=== PATIENT | male | born 1955 | race Caucasian/White ===

== ENCOUNTER 2020-09-26 11:04 | Emergency (ER) | payer MEDICARE, SELFPAY ==
[2020-09-26 11:08] VITALS: BP 141/57; PULSE 74; RESP 16; TEMP 37.3; O2SAT 99
[2020-09-26 11:13] VITALS: BP 141/57; PULSE 74; RESP 16; TEMP 37.3; O2SAT 99
--- NOTE | 2020-09-26 11:43 | ED.SKABFB ---
HPI - Skin/Abscess/Foreign Bdy General Chief complaint: Skin/Abscess/Foreign Body Stated complaint: TICK BITE Time Seen by Provider: 09/26/20 11:36 Source: patient and RN notes reviewed Mode of arrival: ambulatory Limitations: no limitations History of Present Illness HPI narrative: Patient presents today complaining of tick bite to the right abdomen that occurred 2 days ago. He was in [facility] [place] and wanted to come in for possible prophylactic antibiotics for possible Lyme disease. States he was treated with doxycycline approximately 30 years ago after he was bit by a tick previously. Denies fever or any additional symptoms. States the area in his abdomen has gotten slightly bigger and slightly more red. MD complaint: insect bite/sting Related Data Home Medications Medication Instructions Recorded Confirmed lansoprazole [Prevacid] 15 mg PO DAILY 09/26/20 09/26/20 loratadine [Claritin] mg 09/26/20 Allergies Allergy/AdvReac Type Severity Reaction Status Date / Time clindamycin Allergy Unknown Diarrhea Verified 09/26/20 11:12 Review of Systems Review of Systems: Narrative: CONSTITUTIONAL: Denies body aches, fever, chills, or sweats. EYES: Denies visual changes, redness, or discharge. ENT: Denies rhinorrhea, congestion, sore throat, or otalgia. CARDIOVASCULAR: Denies chest pain, palpitations, or edema. RESPIRATORY: Denies cough or dyspnea. GASTROINTESTINAL: Denies abdominal pain, nausea, vomiting, or diarrhea. GENITOURINARY: Denies dysuria or hematuria. SKIN: Denies rash, itching. + Bite to right abdomen MUSCULOSKELETAL: Denies back pain, joint pain, or myalgia. NEUROLOGIC: Denies headache, numbness, tingling, or weakness. PSYCH: Denies depression or anxiety. [facility] Past Medical History Medical History Encounter for colorectal cancer screening Family History Family History Sibling Patient's brother is in good health Mother Family history of pancreatic cancer Father Family history of lymphoma Social History Social History Smoking status: Never smoker Alcohol intake: current Comments At time of signature, I have reviewed and agree with nursing past medical, surgical, social and family history unless otherwise noted. Please see nursing chart for further information. There is no relevant family history pertinent to the presenting complaint Exam Narrative: Exam Narrative: GENERAL: Well-appearing, well-nourished, and in no acute distress. HEAD: Normocephalic, atraumatic. EYES: EOMI. No redness or drainage. Conjunctivae normal. ENT: Mucous membranes pink and moist. NECK: Normal AROM. CHEST: No respiratory distress. EXTREMITIES: Normal range of motion. No edema. SKIN: Warm, dry, no rash. Capillary refill normal. Normal skin turgor. + 1 x 1.5 cm erythematous and mildly indurated insect bite to the right lower abdomen that is nontender to palpation. No fluctuance. Nontender. NEURO: No focal deficits. Alert and oriented x3. Gait steady. PSYCH: Normal affect. No signs of depression or anxiety. Course Vital Signs Vital signs: Vital Signs Temperature 99.2 F 09/26/20 11:08 Pulse Rate 74 09/26/20 11:08 Respiratory Rate 16 09/26/20 11:08 Blood Pressure 141/57 H 09/26/20 11:08 Pulse Oximetry 99 09/26/20 11:08 Temperature 99.2 F 09/26/20 11:13 Pulse Rate 74 09/26/20 11:13 Respiratory Rate 16 09/26/20 11:13 Blood Pressure 141/57 H 09/26/20 11:13 Pulse Oximetry 99 09/26/20 11:13 Reviewed. Pt has been instructed to follow up with his PCP regarding his elevated blood pressure today. MDM - Skin/Abscess/Foreign Bdy Differential Diagnosis Differential diagnosis: Likely abscess of skin or subcutaneous tissue, urticaria, cellulitis, insect bites, impetigo and co
== END 2020-09-26 11:58 | disposition home or self-care (01) ==
PROVIDERS: Emergency Provider Nurse Practitioner; PCP Family Medicine
DX: S30.861A Insect bite (nonvenomous) of abdominal wall, initial encounter (principal); W57.XXXA Bitten or stung by nonvenomous insect and other nonvenomous arthropods, initial encounter; K21.9 Gastro-esophageal reflux disease without esophagitis
CPT/HCPCS: 99213; G0463

== ENCOUNTER 2021-08-30 06:16 | Emergency (ER) | payer MEDICARE, OTHER, SELFPAY ==
--- NOTE | ~2021-08-30 | XR_ITS ---
EXAMINATION: XR chest 1V portable DATE: 08/30/2021 06:57 INDICATION: Chest pain. TECHNIQUE: A single frontal view of the chest was obtained. COMPARISON: Chest single view 01/05/2008 FINDINGS: The chest demonstrates clear lungs without pneumonia, pleural effusion, or pneumothorax. Th e heart size is normal. IMPRESSION: 1. No acute cardiopulmonary disease. Reviewed, dictated and finalized at location A.
[2021-08-30 06:28] VITALS: BP 137/62; PULSE 73; RESP 16; TEMP 36.2; O2SAT 98
--- NOTE | 2021-08-30 06:35 | ECG_ITS ---
Measurements Intervals [place] Rate: 73 P: 8 [place]: 162 QRS: 19 QRSD: 130 T: -1 QT: 392 QTc: 434 Interpretive Statements SINUS RHYTHM WITH OCCASIONAL SUPRAVENTRICULAR PREMATURE COMPLEXES RIGHT BUNDLE BRANCH BLOCK [120+ ms QRS DURATION, UPRIGHT V1, 40+ ms S IN I/aVL/V4/V5/V6] NO PREVIOUS ECG AVAILABLE FOR COMPARISON Electronically Signed On 08-30-2021 16:19:22 CDT by Kentrell Cruz M.D.
[2021-08-30 06:52] LABS: Basophils Percent Auto 0.6 % (0.2-1.2); Eosinophils Absolute Auto 0.2 K/mm3 (0-0.3); Eosinophils Percent Auto 3.2 % (0-4.4); Hemoglobin 14.2 g/dL (14.0-18.0); Immature Granulocyte Absolute 0.02 K/mm3 (0.00-0.031); Immature Granulocyte Percent A 0.4 % (0-0.5); Lymphocytes Absolute Auto 1.46 K/mm3 (0.9-3.2); Lymphocytes Percent Auto 27.7 % (18.3-44.2); Mean Corpuscular Hemoglobin 29.4 pg (26-34); Mean Platelet Volume 10.1 fl (7.4-10.4); Monocytes Absolute Auto 0.5 K/mm3 (0.1-0.6); Monocytes Percent Auto 8.5 % (2.6-8.5); Neutrophils Absolute Auto 3.2 K/mm3 (1.3-6.7); Neutrophils Percent Auto 59.6 % (45.5-73.1); Platelet Count Result 187 k/mm3 (150-375); Red Blood Count 4.83 M/mm3 (4.6-6.20); White Blood Count 5.3 K/mm3 (4.5-10.0)
[2021-08-30 07:01] LABS: Alanine Aminotransferase 21 U/L (4-50); Albumin Level 3.9 g/dL (3.5-5.1); Alkaline Phosphatase 33 U/L (38-126); Anion Gap 6 mmol/L (8-16); Aspartate Amino Transferase 28 U/L (17-59); Bilirubin,Total 0.6 mg/dL (0.2-1.3); Blood Urea Nitrogen 15 mg/dL (9-20); Calcium 8.5 mg/dL (8.4-10.2); Carbon Dioxide 27 mmol/L (22-30); Chloride 107 mmol/L (98-107); Estimated CRCL calculation 72 ml/min; Estimated Glomerular Filt Rate > 60; Glucose 102 mg/dL (65-110); Potassium 3.8 mmol/L (3.4-5.0); Sodium 140 mmol/L (137-145)
--- NOTE | 2021-08-30 07:03 | ED.ARRPALP ---
HPI - Arrhythmia/Palpitations General Chief Complaint: Arrhythmia/Palpitations Stated Complaint: palpitations Time Seen by Provider: 08/30/21 07:02 Source: patient Mode of arrival: ambulatory Limitations: no limitations History of Present Illness HPI narrative: The patient is a 66 yo male who presents to the ER for evaluation of palpitations. Patient states that he experienced palpitations intermittently throughout the day yesterday and then awakened this morning with palpitations. Patient denies current palpitations. Denies fever, chills, cough, chest pain. Patient reports general malaise since COVID infection in May, denies pleuritic pain or shortness of breath. Denies shortness of breath at rest or with exertion. Patient denies leg swelling or calf pain. States that they have vacation to [facility], have been very active, denies recent surgery or immobility. Denies history of recent surgery. Patient denies weight loss, focal pain. States that because the palpitations awakened him this morning he wanted to be evaluated in the ER. Patient states he was wearing a fitness watch which showed his heart rate to be no greater than 80s. Related Data Home Medications Medication Instructions Recorded Confirmed tamsulosin 0.4 mg capsule 0.4 mg PO DAILY 01/29/21 06/18/21 Allergies Allergy/AdvReac Type Severity Reaction Status Date / Time clindamycin Allergy Unknown Diarrhea Verified 08/30/21 06:39 pollen extracts Allergy Unknown Verified 08/30/21 06:39 Review of Systems Review of Systems: CONSTITUTIONAL: Denies fever, chills, or sweats. EYES: Denies visual changes, redness, or discharge. ENT: Denies rhinorrhea, congestion, sore throat, or otalgia. CARDIOVASCULAR: Denies chest pain, denies current palpitations, or edema. RESPIRATORY: Denies cough or dyspnea. GASTROINTESTINAL: Denies abdominal pain, nausea, vomiting, or diarrhea. GENITOURINARY: Denies dysuria or hematuria. SKIN: Denies rash or itching. MUSCULOSKELETAL: Denies back pain, joint pain, or myalgia. NEUROLOGIC: Denies headache, numbness, or weakness. [facility] Past Medical History Medical History Encounter for colorectal cancer screening Family History Family History Sibling Patient's brother is in good health Mother Family history of pancreatic cancer Father Family history of lymphoma Social History Social History Second hand tobacco smoke exposure: No Alcohol intake: current Substance use: never Substance use type: does not use Gender identity (if verbalized by the patient): Male Sexual Orientation (if Verbalized by the Patient): Straight or Heterosexual Exam Narrative: GENERAL: Awake, alert, conversant HEAD: Normocephalic, atraumatic. EYES: PERRLA and EOMI. ENT: Nares clear, no rhinorrhea or epistaxis. Mucous membranes moist. NECK: Supple. CHEST: No respiratory distress, breathing even and non labored HEART: Regular rate, sinus rhythm ABDOMEN:Non distended, non tender EXTREMITIES: Normal range of motion. No edema. SKIN: Warm, dry, no rash. NEURO:No focal deficits. Alert and oriented x3 Course Vital Signs Vital signs: Vital Signs Temperature 36.2 C L 08/30/21 06:28 Pulse Rate 73 08/30/21 06:28 Respiratory Rate 16 08/30/21 06:28 Blood Pressure 137/62 08/30/21 06:28 Pulse Oximetry 98 08/30/21 06:28 Temperature 36.2 C L 08/30/21 06:28 Pulse Rate 72 08/30/21 10:03 Respiratory Rate 17 08/30/21 10:03 Blood Pressure 132/72 08/30/21 10:03 Pulse Oximetry 98 08/30/21 06:28 MDM - Arrhythmia/Palpitations MDM Narrative Medical decision making narrative: Patient presented for evaluation of palpitations that are resolved at the time of assessment. Patient is normal sinus rhythm on the laboratory monitor, EKG consistent with normal sinus rhyth
[2021-08-30 07:13] LABS: Troponin I < 0.012 ng/mL (0.000-0.034)
[2021-08-30 08:00] VITALS: BP 137/80; PULSE 78; RESP 22
[2021-08-30 09:00] VITALS: BP 109/84; PULSE 64; RESP 17
[2021-08-30 10:03] VITALS: BP 132/72; PULSE 72; RESP 17
[2021-08-30 10:37] LABS: Troponin I < 0.012 ng/mL (0.000-0.034)
[2021-08-30 10:55] VITALS: BP 122/68; PULSE 65; RESP 16
--- NOTE | 2021-09-02 16:46 | WPDHOLTEREM ---
Holter/Event Monitor Holter/Event Monitor Date of procedure: 08/30/21 Holter/Event Procedure: 48 Hr Holter Monitor Indications: Palpitations Conclusion: 1. 48 hour holter monitor on 08/30/21. 2. Predominant rhythm is sinus rhythm. HR range 50-112 bpm; average HR 74 bpm. 3. There are 6,741 premature supraventricular complexes, 11 supraventricular couplets, 1 supraventricular triplet, 1,057 supraventricular trigeminy. One episode of atrial tachycardia at 136 bpm lasting 4 beats. 4. No premature ventricular complexes. No ventricular tachycardia. 5. No sinoatrial or atrioventricular blocks. No significant pauses greater than 2 seconds. 6. Patient reports symptoms of palpitations, queasy, shakiness which demonstrate sinus rhythm, HR range 69-154 bpm with some PAC's.
== END 2021-08-30 12:27 | disposition home or self-care (01) ==
PROVIDERS: Emergency Medicine; Emergency Provider Emergency Medicine; PCP Family Medicine
DX: R00.2 Palpitations (principal); Z86.16 Personal history of COVID-19; I49.1 Atrial premature depolarization; I45.10 Unspecified right bundle-branch block
CPT/HCPCS: 36415; 71045; 80053; 84443; 84484; 85025; 93005; 93225; 93226; 99284

== ENCOUNTER → 2021-12-02 15:39 | Outpatient (CLI) | payer MEDICARE, OTHER, SELFPAY ==
--- NOTE | ~2021-12-02 | XR_ITS ---
EXAMINATION: XR chest 2V 12/02/2021 15:56 INDICATION: Cough PROCEDURE: 2 view chest COMPARISON: 08/30/2021 FINDINGS: The lungs are clear. The cardiomediastinal silhouette is within normal limits. There are no pleural effusions. There is no pneumothorax suspected. 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 IMPRESSION: 1: NO ACUTE CARDIOPULMONARY DISEASE. Reviewed, dictated and finalized at location A.
== END ==
PROVIDERS: PCP Family Medicine; Visit Provider Nurse Practitioner Family
DX: R05.9 Cough, unspecified (principal)
CPT/HCPCS: 71046

== ENCOUNTER 2022-04-30 10:05 | Emergency (ER) | payer MEDICARE, OTHER, SELFPAY ==
--- NOTE | 2022-04-30 10:18 | ED.URI ---
HPI - URI/Sore Throat General Chief Complaint: Upper Respiratory Infection Stated Complaint: sinus inf Time Seen by Provider: 04/30/22 10:19 Source: patient Mode of arrival: ambulatory Limitations: no limitations History of Present Illness HPI Narrative: Mr. Basilio is a 66-year-old male patient presenting to the clinic today with complaints of a possible sinus infection. He reports he has had nasal congestion and sinus pressure times 10 days. He reports that he has had maybe a mild fever. Has been blowing green nasal drainage. MD elicited complaint: sore throat and nasal congestion Related Data Home Medications Medication Instructions Recorded Confirmed tamsulosin 0.4 mg capsule mg PO 04/30/22 Allergies Allergy/AdvReac Type Severity Reaction Status Date / Time clindamycin Allergy Unknown Diarrhea Verified 04/30/22 10:17 pollen extracts Allergy Unknown Verified 04/30/22 10:17 Review of Systems Review of Systems: Pertinent positives per HPI. Patient denies any fever, chills, rash, headache, visual changes, dizziness, shortness of breath, chest pain, palpitations, nausea, vomiting, diarrhea, constipation, abdominal pain, or any urinary issues. PMFSH Past Medical History Medical History Encounter for colorectal cancer screening Supraventricular premature beats Family History Family History Sibling Patient's brother is in good health Mother Family history of pancreatic cancer Father Family history of lymphoma Social History Social History Smoking status: Never smoker Second hand tobacco smoke exposure: No Alcohol intake: current Substance use: never Substance use type: does not use Gender identity (if verbalized by the patient): Male Sexual Orientation (if Verbalized by the Patient): Straight or Heterosexual Comments At the time of my signature, I reviewed and agree with the nursing past medical, surgical, social, and family history. There is no relevant family history pertinent to the patient complaint. Exam Narrative: General: Well-developed, well nourished, in no apparent distress Head: Normocephalic, atraumatic Eyes: Pupils equally round and reactive to light bilaterally, EOM intact, sclera and conjunctive clear, no discharge, lids normal Ears: TMs intact and clear, ear canals clear, no drainage, grossly hearing normal. Nose: Nares patent, green nasal discharge, moderate to severe inflammation, maxillary sinus tenderness. Mouth: Oral pharynx without lesions or masses, good dentition, MMM. Neck: Supple, trachea midline, no enlargement of anterior or posterior cervical nodes, no thyroid masses or goiter palpable. Cardio: Regular rate and rhythm, s1 and s2 normal, no murmur appreciated. Resp: Clear to auscultation bilaterally, no rhonchi, rales, wheezing or rubs Course Course Emergency Course: Portions of this record may have been created with voice recognition software. Level of Care: Express Care Visit Vital Signs Vital signs: Vital Signs Temperature 37.1 C 04/30/22 10:22 Pulse Rate 81 04/30/22 10:22 Respiratory Rate 16 04/30/22 10:22 Blood Pressure 126/68 04/30/22 10:22 Pulse Oximetry 98 04/30/22 10:22 Temperature 37.1 C 04/30/22 10:22 Pulse Rate 81 04/30/22 10:22 Respiratory Rate 16 04/30/22 10:22 Blood Pressure 126/68 04/30/22 10:22 Pulse Oximetry 98 04/30/22 10:22 Vital signs reviewed MDM - URI/Sore Throat MDM Narrative Medical decision making narrative: At the time of visit patient is resting comfortably on the exam table. I suspect patient has acute bacterial rhinosinusitis. Will send a prescription for Augmentin and prednisone. Supportive measures were discussed with the patient he voiced understanding discharge instructions and agree
[2022-04-30 10:22] VITALS: BP 126/68; PULSE 81; RESP 16; TEMP 37.1; O2SAT 98
== END 2022-04-30 10:29 | disposition home or self-care (01) ==
PROVIDERS: Emergency Provider Nurse Practitioner Family; PCP Family Medicine
DX: J01.90 Acute sinusitis, unspecified (principal); B96.89 Other specified bacterial agents as the cause of diseases classified elsewhere
CPT/HCPCS: 99213; G0463

== ENCOUNTER 2023-05-08 14:38 | Emergency (ER) | payer MEDICARE, OTHER, SELFPAY ==
[2023-05-08 15:06] VITALS: BP 115/53; PULSE 71; RESP 16; TEMP 36.6; O2SAT 99
[2023-05-08 15:09] VITALS: BP 115/53; PULSE 71; RESP 16; TEMP 36.6; O2SAT 99
--- NOTE | 2023-05-08 15:09 | ED.URI ---
HPI - URI/Sore Throat General Chief Complaint: Upper Respiratory Infection Stated Complaint: steve,cough,fever Time Seen by Provider: 05/08/23 15:32 Source: patient and RN notes reviewed Mode of arrival: ambulatory Limitations: no limitations History of Present Illness HPI Narrative: 67-year-old male presents with concern for 3 day history of nasal congestion, rhinorrhea, cough, chest congestion. Reports he has taken ibuprofen, Sudafed with little relief. Reports exposure RSV. MD elicited complaint: fever and cough Related Data Home Medications Medication Instructions Recorded Confirmed tamsulosin 0.4 mg capsule 0.4 mg PO DAILY 04/30/22 05/08/23 loratadine 10 mg tablet (Claritin) 10 mg PO DAILY 05/08/23 05/08/23 multivit,Ca,min-iron 8 mg-folic 1 tablet PO DAILY 05/08/23 05/08/23 acid 200 mcg-lycopene 600 mcg tablet (Centrum Men) vit C 250 mg-vit E 200 unit-zinc 1 cap PO DAILY 05/08/23 05/08/23 ox 12.5 [id number] capsule (ICaps AREDS2) Allergies Allergy/AdvReac Type Severity Reaction Status Date / Time clindamycin Allergy Unknown Diarrhea Verified 05/08/23 15:06 pollen extracts Allergy Unknown Verified 05/08/23 15:06 Review of Systems Review of Systems: CONSTITUTIONAL: Reports malaise, fever. EYES: Denies visual changes, redness, or discharge. ENT: Reports rhinorrhea, congestion CARDIOVASCULAR: Denies chest pain, palpitations, or edema. RESPIRATORY: Reports cough. Denies dyspnea. GASTROINTESTINAL: Denies abdominal pain, nausea, vomiting, diarrhea SKIN: Denies rash or itching. MUSCULOSKELETAL: Denies myalgia. NEUROLOGIC: Denies headache. All systems reviewed & are unremarkable except as noted in HPI and below PMFSH Past Medical History Medical History Encounter for colorectal cancer screening Supraventricular premature beats Family History Family History Sibling Patient's brother is in good health Mother Family history of pancreatic cancer Father Family history of lymphoma Social History Social History Smoking status: Never smoker Second hand tobacco smoke exposure: No Alcohol intake: current Substance use: never Substance use type: does not use Living arrangements: with family Occupation/Education: occupation Gender identity (if verbalized by the patient): Male Sexual Orientation (if Verbalized by the Patient): Straight or Heterosexual Comments At time of signature, agree with nursing past medical, surgical, social and family history. There is no relevant family history pertinent to the presenting complaint Exam Narrative: GENERAL: Well-appearing, well-nourished, and in no acute distress. HEAD: Normocephalic EYES: PERRLA, conjunctivae clear ENT: Nares clear, turbinates edematous and erythematous, clear discharge. Mucous membranes moist. TM pearly turk with dull light reflex bilaterally; no tragal tenderness. Oropharynx not erythematous without lesions. Tonsils not enlarged and without exudate, no drooling, no hoarseness, no trismus, uvula midline. NECK: Supple. No lymphadenopathy CHEST: Clear to auscultation, breath sounds equal. No wheezing, rhonchi, rales, or stridor. No respiratory distress, speaks in full sentences. HEART: Regular rate and rhythm. No murmur heard. SKIN: Warm, dry, no rash. NEURO: Alert and oriented x3. PSYCH: Normal mood and affect Course Course Emergency Course: Patient is aware of diagnosis, understands and agrees to treatment plan. Anticipatory guidance given. Patient agrees to follow-up as directed and is aware of reasons to seek care at the emergency department. Portions of this record may have been created with voice recognition software Level of Care: Express Care Visit Vital Signs Vital signs: Vital Signs Temperature 98 F 05/08/23 15:06 Pulse
== END 2023-05-08 15:47 | disposition home or self-care (01) ==
PROVIDERS: Emergency Provider Nurse Practitioner; PCP Family Medicine
DX: J10.1 Influenza due to other identified influenza virus with other respiratory manifestations (principal)
CPT/HCPCS: 87420; 87804; 99213; G0463

== ENCOUNTER → 2023-06-01 09:45 | Outpatient (CLI) | payer MEDICARE, OTHER, SELFPAY ==
--- NOTE | ~2023-06-01 | CT_ITS ---
EXAMINATION: CT sinus wo con DATE: 06/01/2023 10:02 INDICATION: Acute recurrent pansinusitis TECHNIQUE: Computed tomography (CT) of the paranasal sinuses was performed without intravenous contra st. The dose-length product was 275.58 mGy-cm. Automated exposure control and iterative reconstructio n technique were employed. COMPARISON: CT dated 08/05/2008 FINDINGS: No air-fluid levels. Leftward nasal septal deviation. Ostiomeatal units are patent. There i s minimal mucosal thickening of the left maxillary antrum. No mucoperiosteal reaction. Mastoids are p neumatized. IMPRESSION: 1. Mild left maxillary sinus disease. Reviewed, dictated and finalized at location L. ETING DAT[employer]ASE COORDINATOR
== END ==
PROVIDERS: PCP Family Medicine; Visit Provider Otolaryngology
DX: J01.41 Acute recurrent pansinusitis (principal)
CPT/HCPCS: 70486

== ENCOUNTER → 2023-06-21 10:57 | Outpatient (CLI) | payer MEDICARE, OTHER, SELFPAY ==
--- NOTE | ~2023-06-21 | XR_ITS ---
Clinical Indication: Cough PA and lateral views of the chest: Comparison: 12/02/2021 Findings: The lungs are clear, without evidence of focal consolidation or pleural effusion. Cardiome diastinal silhouette is within normal limits. Bones and soft tissues are unremarkable. Impression: Normal chest. Reviewed, dictated and finalized at [facility]. DIPPER Impression: Normal chest.
== END ==
PROVIDERS: PCP Physician Assistant Medical; Visit Provider Physician Assistant Medical
DX: R05.9 Cough, unspecified (principal)
CPT/HCPCS: 71046

== ENCOUNTER 2023-07-28 08:26 | Emergency (ER) | payer MEDICARE, OTHER, SELFPAY ==
[2023-07-28 08:42] VITALS: BP 128/75; PULSE 85; RESP 16; TEMP 37; O2SAT 99
--- NOTE | 2023-07-28 08:44 | ED.EAR ---
HPI - Ear Problem General Chief complaint: Ear Stated complaint: Ear Pain Time Seen by Provider: 07/28/23 08:46 Source: patient and RN notes reviewed Mode of arrival: ambulatory Limitations: no limitations History of Present Illness HPI Narrative: 68-year-old male presents with concern for fullness in his left ear for 2 days. He reports he can hear fluid in his ear. He reports sinus drainage. Denies pain. Reports history of ear infections. Reports he has had issues since the beginning of the year with flu, bronchitis. He denies drainage from his ear. Reports he takes Flonase, Claritin daily. MD Complaint: ear pain Related Data Home Medications Medication Instructions Recorded Confirmed tamsulosin 0.4 mg capsule 0.4 mg PO DAILY 04/30/22 07/28/23 loratadine 10 mg tablet (Claritin) 10 mg PO DAILY 05/08/23 07/28/23 multivit,Ca,min-iron 8 mg-folic 1 tablet PO DAILY 05/08/23 07/28/23 acid 200 mcg-lycopene 600 mcg tablet (Centrum Men) vit C 250 mg-vit E 200 unit-zinc 1 cap PO DAILY 05/08/23 07/28/23 ox 12.5 [id number] capsule (ICaps AREDS2) Allergies Allergy/AdvReac Type Severity Reaction Status Date / Time clindamycin Allergy Unknown Diarrhea Verified 07/28/23 08:42 pollen extracts Allergy Unknown Verified 07/28/23 08:42 Review of Systems Review of Systems: CONSTITUTIONAL: Denies malaise, chills, sweats, or fever. EYES: Denies visual changes, redness, or discharge. ENT: Reports rhinorrhea, congestion. Denies sinus pain, and sore throat. Reports left ear fullness CARDIOVASCULAR: Denies chest pain, palpitations, or edema. RESPIRATORY: Denies cough. Denies dyspnea. GASTROINTESTINAL: Denies abdominal pain, nausea, vomiting, diarrhea SKIN: Denies rash or itching. MUSCULOSKELETAL: Denies myalgia. NEUROLOGIC: Denies headache. All systems reviewed & are unremarkable except as noted in HPI and below PMFSH Past Medical History Medical History Encounter for colorectal cancer screening Supraventricular premature beats Family History Family History Sibling Patient's brother is in good health Mother Family history of pancreatic cancer Father Family history of lymphoma Social History Social History Smoking status: Never smoker Second hand tobacco smoke exposure: No Alcohol intake: current Substance use: never Substance use type: does not use Living arrangements: with family Occupation/Education: occupation Gender identity (if verbalized by the patient): Male Sexual Orientation (if Verbalized by the Patient): Straight or Heterosexual Comments At time of signature, agree with nursing past medical, surgical, social and family history. There is no relevant family history pertinent to the presenting complaint Exam Narrative: GENERAL: Well-appearing, well-nourished, and in no acute distress. HEAD: Normocephalic EYES: PERRLA, conjunctivae clear ENT: Nares clear, turbinates edematous, clear discharge. Mucous membranes moist. TM pearly turk with sharp light reflex bilaterally; no tragal tenderness. Oropharynx not erythematous without lesions. Tonsils not enlarged and without exudate, no drooling, no hoarseness, no trismus, uvula midline. NECK: Supple. No lymphadenopathy CHEST: Clear to auscultation, breath sounds equal. No wheezing, rhonchi, rales, or stridor. No respiratory distress, speaks in full sentences. HEART: Regular rate and rhythm. No murmur heard. SKIN: Warm, dry, no rash. NEURO: Alert and oriented x3. PSYCH: Normal mood and affect Course Course Emergency Course: Patient is aware of diagnosis, understands and agrees to treatment plan. Anticipatory guidance given. Patient agrees to follow-up as directed and is aware of reasons to seek care at the emergency department. Portions of thi
== END 2023-07-28 09:00 | disposition home or self-care (01) ==
PROVIDERS: Emergency Provider Nurse Practitioner; PCP Family Medicine
DX: H74.8X2 Other specified disorders of left middle ear and mastoid (principal)
CPT/HCPCS: 99211; G0463